=== PATIENT | female | born 1995 | race Hispanic/Latino ===

== ENCOUNTER 2016-10-27 13:27 | Emergency (ER) | payer MEDICAID ==
[2016-10-27 13:38] VITALS: BMI 30.1
[2016-10-27 13:42] VITALS: BP 99/71; PULSE 84; RESP 17; TEMP 98.4; O2SAT 100
--- NOTE | 2016-10-27 13:52 | ED PDOC ---
HPI: Abdomen Time Seen by Provider: 10/27/16 13:37 Chief Complaint (Nursing): Abdominal Pain Chief Complaint (Provider): Pelvic Pain History Per: Patient History/Exam Limitations: no limitations Onset/Duration Of Symptoms: Hrs Outside of [place] travel?: No Current Symptoms Are (Timing): Still Present Quality Of Discomfort: "Pain" Associated Symptoms: denies: Fever, Chills, Nausea, Vomiting, Urinary Symptoms Additional Complaint(s): Marianna Stroud, a 21 year old female, presents to the ED complaining of abdominal pain. The patient states that last night she felt pain in her sides but ignored it until this morning. 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 The patient reports that she felt similar pains a few years ago when she had a cyst that burst. Denies fevers, chills, nausea, vomiting, vaginal bleeding/discharge, urinary symptoms. Abnormal Vaginal Bleeding: No Past Medical History Reviewed: Historical Data, Nursing Documentation, Vital Signs Vital Signs: Last Vital Signs Temp 98.4 F 10/27/16 13:40 Pulse 84 10/27/16 13:40 Resp 17 10/27/16 13:40 BP 99/71 L 10/27/16 13:40 Pulse Ox 100 10/27/16 17:23 - Medical History PMH: No Chronic Diseases - Family History Family History: States: Unknown Family Hx - Immunization History Hx Tetanus Toxoid Vaccination: Yes Hx Influenza Vaccination: No Hx Pneumococcal Vaccination: No - Home Medications Home Medications: Ambulatory Orders Medication Instructions Recorded Nitrofurantoin Macrocrystals 100 mg PO BID #14 cap 10/27/16 [Macrobid] - Allergies Allergies/Adverse Reactions: Allergies Allergy/AdvReac Type Severity Reaction Status Date / Time latex Allergy RASH Verified 10/27/16 14:15 Review of Systems Constitutional: Negative for: Fever, Chills Gastrointestinal: Positive for: Abdominal Pain. Negative for: Nausea, Vomiting Genitourinary Female: Negative for: Dysuria, Frequency, Incontinence, Hematuria , Vaginal Discharge, Vaginal Bleeding Physical Exam - Reviewed Nursing Documentation Reviewed: Yes Vital Signs Reviewed: Yes - Physical Exam Appears: Positive for: Non-toxic, No Acute Distress Head Exam: Positive for: ATRAUMATIC, NORMOCEPHALIC Skin: Positive for: Normal Color, Warm, Dry Eye Exam: Positive for: Normal appearance, EOMI, PERRL ENT: Positive for: Normal ENT Inspection Neck: Positive for: Normal, Painless ROM, Supple Cardiovascular/Chest: Positive for: Regular Rate, Rhythm. Negative for: Chest Non Tender, Tachycardia Respiratory: Positive for: Normal Breath Sounds. Negative for: Wheezing, Respiratory Distress Gastrointestinal/Abdominal: Positive for: Normal Exam (Right sided pelvic pain) , Bowel Sounds, Soft. Negative for: Tenderness, Guarding, Rebound Pelvic Exam: Positive for: Discharge (White discharge adhered to vaginal alejo.) , Tender Adnexa (Left adnexal tenderness.), Other (No drainage from cervix; [employer] - RN Rosalia). Negative for: No Cerv. Motion Tender Back: Positive for: Normal Inspection. Negative for: L CVA Tenderness, R CVA Tenderness Extremity: Positive for: Normal ROM. Negative for: Tenderness, Deformity, Swelling Neurologic/Psych: Positive for: Alert, Oriented, Gait - ECG O2 Sat by Pulse Oximetry: 100 (RA) Pulse Ox Interpretation: Normal Medical Decision Making Medical Decision Makin:37 Initial Impression: 21 year old female presenting with right sided pelvic pain Initial Plan: * Upreg * Urinalysis * Diflucan 150mg PO * US Pelvis/Transvaginal 5:23 Patient is medically stable and will be discharged home with antibiotics to treat UTI. Patient was instructed to return to ED if pain persists or gets worse. Dx: UTI Condition: Stable Scribe Attestation Documented by Aishwarya Loredo acting as a scribe for Nora Manzano PA-C. Scribe Attestation All medical record entries made by the Scribe were at my direction and personally dictated by me. I have reviewed the chart and agree that the record accurately reflects my personal performance of the history, physical exam, medical decision making, and the department course for this patient. I have also personally directed, reviewed, and agree with the discharge instructions and disposition. Disposition - Clinical Impression Clinical Impression: UTI (urinary tract infection) - Patient ED Disposition Is Patient to be Admitted: No Counseled Patient/Family Regarding: Studies Performed, Diagnosis, Rx Given - Disposition Disposition: Routine/Home Disposition Time: 13:35 Prescriptions: Nitrofurantoin Macrocrystals [Macrobid] 100 mg PO BID #14 cap Instructions: Urinary Tract Infection in Women (ED)
[2016-10-27 14:26] LABS: RBC URINE 3 /hpf (0-3); URINE BACTERIA FEW (<OCC); URINE BILIRUBIN NEGATIVE (NEGATIVE); URINE BLOOD NEGATIVE (NEGATIVE); URINE COLOR YELLOW (YELLOW); URINE GLUCOSE (UA) NEG (Normal); URINE KETONE NEGATIVE (NEGATIVE); URINE LEUKOCYTE ESTERASE NEG Leu/uL (Negative); URINE PROTEIN NEGATIVE (NEGATIVE); URINE UROBILINOGEN 0.2-1.0 mg/dL (0.2-1.0); WBC URINE 1 /hpf (0-5)
[2016-10-27] MEDS ORDERED: Fluconazole 150 MG TAB PO ONE (14:35)
--- NOTE | 2016-10-27 17:20 | US ---
Pelvic ultrasound dated 10/27/2016 History: Left-sided pelvic pain. Transabdominal-transvaginal sonographic evaluation of the pelvis performed. Findings: The uterus is anteverted measuring approximately 7.3 x 3.4 x 4.9 cm. The endometrial stripe measures 1.1 cm. No myometrial masses seen. There is fluid present in the cul de sac. Right ovary measures approximately 2.5 x 1.6 x 1.6 cm. Left ovary measures approximately 3.2 x 1.7 x 2 x 3.2 cm. Both ovaries contain follicular cysts and exhibit arterial flow. Impression: There is free fluid present within the cul de sac of. No adnexal masses or collections seen.
== END 2016-10-27 17:24 | disposition home or self-care (01) ==
LOC: H.ER 13:27
DX: N39.0 Urinary tract infection, site not specified (principal)

== ENCOUNTER 2016-12-23 21:35 | Emergency (ER) | payer SELFPAY ==
[2016-12-23 21:35] VITALS: BMI 30.1
[2016-12-23 22:12] VITALS: BP 106/56; PULSE 75; RESP 20; TEMP 99.1; O2SAT 100
--- NOTE | 2016-12-23 22:16 | ED PDOC ---
Lower Extremity Pain/Injury Time Seen by Provider: 12/23/16 22:16 Chief Complaint (Nursing): Lower Extremity Problem/Injury Chief Complaint (Provider): left foot pain History Per: Patient Additional Complaint(s): 21-year-old female presents with 4 day history of atraumatic pain to left foot and ankle. Patient has been taking Tylenol but this has not helped. She states she is limping when she walks. No fever or chills. Patient rates current pain as an 8 out of 10 and denies any associated numbness or tingling. Pain does not radiate. Past Medical History Reviewed: Historical Data, Nursing Documentation, Vital Signs Vital Signs: Last Vital Signs Temp 99.1 F 12/23/16 22:10 Pulse 75 12/23/16 22:10 Resp 20 12/23/16 22:10 BP 106/56 L 12/23/16 22:10 Pulse Ox 100 12/23/16 22:10 - Medical History PMH: No Chronic Diseases - Surgical History Other surgeries: Left hand fracture repair - Family History Family History: States: No Known Family Hx - Living Arrangements Living Arrangements: With Family - Social History Current smoker - smoking cessation education provided: No Alcohol: None Drugs: Denies - Home Medications Home Medications: Ambulatory Orders Medication Instructions Recorded Nitrofurantoin Macrocrystals 100 mg PO BID #14 cap 10/27/16 [Macrobid] Ibuprofen [Motrin Tab] 800 mg PO Q8 PRN #20 tab 12/23/16 - Allergies Allergies/Adverse Reactions: Allergies Allergy/AdvReac Type Severity Reaction Status Date / Time latex Allergy RASH Verified 10/27/16 14:15 Wells Criteria for PE - Wells Criteria for Pulmonary Embolism Clinical Signs and Symptoms of DVT: No P.E is #1 Diagnosis, or Equally Likely: No Heart Rate >100: No Immobilization at least 3 days;Surgery previous 4 weeks: No Previous, objectively diagnosed PE or DVT: No Hemoptysis: No Malignancy w/treatment within 6 months, or palliative: No Total Score: 0 Review of Systems ROS Statement: Except As Marked, All Systems Reviewed And Found Negative Constitutional: Negative for: Fever Musculoskeletal: Positive for: Foot Pain (left foot and ankle pain for 4 days, denies trauma) Physical Exam - Reviewed Nursing Documentation Reviewed: Yes Vital Signs Reviewed: Yes - Physical Exam Appears: Positive for: Well, Non-toxic, No Acute Distress Skin: Negative for: Rash Eye Exam: Positive for: Normal appearance Extremity: Positive for: Other (Tenderness diffusely to left ankle and foot region with no soft tissue swelling or ecchymosis, normal distal sensation, swelling or tenderness) Neurologic/Psych: Positive for: Alert, Oriented - Laboratory Results Urine POC: Negative - ECG O2 Sat by Pulse Oximetry: 100 Pulse Ox Interpretation: Normal - Other Rad Left foot and ankle x-ray X-Ray: Interpreted by Me, Viewed By Me X-Ray Interpretation: no fx, no dis Medical Decision Making Medical Decision Makin-year-old female with left foot and ankle pain. Plan: X-ray left foot and ankle PO motrin for pain Crutches given. See procedure note. Rx motrin. Podiatry referral. Procedures - Splinting Location: left foot Pre-Made Type: jennifer wrap, ortho shoe Pre-Proc Neuro Vasc Exam: normal Post-Proc Neuro Vasc Exam: normal Disposition - Clinical Impression Clinical Impression: Foot sprain - Patient ED Disposition Is Patient to be Admitted: No Counseled Patient/Family Regarding: Studies Performed, Diagnosis, Need For Followup, Rx Given - Disposition Referrals: Podiatry Clinic [Outside] Disposition: Routine/Home Disposition Time: 23:18 Condition: STABLE Additional Instructions: Ice, rest and elevate affected area. Take prescription medicines directed as needed for pain. Follow-up with podiatry clinic for any persistent symptoms. Prescriptions: Ibuprofen [Motrin Tab] 800 mg PO Q8 PRN #20 tab PRN Reason: Pain, Moderate (4-7) Instructions: Foot Sprain (ED), Crutch Instructions (ED) Forms: [employer] ([place]), [facility] ED School/Work Excuse
--- NOTE | 2016-12-24 09:59 | RAD ---
PROCEDURE: Left Ankle Radiographs. HISTORY: pain COMPARISON: None FINDINGS: BONES: Bone alignment and mineralization are normal. There is no acute displaced fracture or bone destruction. JOINTS: Normal. No osteoarthritis. Ankle mortise maintained. Talar dome intact SOFT TISSUES: Normal. OTHER FINDINGS: None. IMPRESSION: Normal examination.
--- NOTE | 2016-12-24 10:00 | RAD ---
PROCEDURE: Left Foot Radiographs. HISTORY: Pain COMPARISON: None. FINDINGS: BONES: Bone alignment and mineralization are normal. There is no acute fracture or bone destruction. JOINTS: Normal. SOFT TISSUES: Normal. OTHER FINDINGS: None. IMPRESSION: No acute fracture or dislocation.
== END 2016-12-23 23:30 | disposition home or self-care (01) ==
LOC: H.ER 21:35
DX: S93.602A Unspecified sprain of left foot, initial encounter (principal); X50.9XXA Other and unspecified overexertion or strenuous movements or postures, initial encounter; Y92.89 Other specified places as the place of occurrence of the external cause

== ENCOUNTER 2017-01-18 14:46 | Emergency (ER) | payer SELFPAY ==
[2017-01-18 14:47] VITALS: BMI 30.1
[2017-01-18 15:05] VITALS: TEMP 97.8
[2017-01-18] MEDS ORDERED: Sodium Chloride 0.9% 1,000 ML IV STA (16:10)
--- NOTE | 2017-01-18 16:16 | ED PDOC ---
HPI: Female Pain Time Seen by Provider: 01/18/17 15:18 Chief Complaint (Nursing): Female Genitourinary Chief Complaint (Provider): Pelvic pain History Per: Patient History/Exam Limitations: no limitations Onset/Duration Of Symptoms: Hrs (x 2) Current Symptoms Are (Timing): Still Present Additional Complaint(s): Marianna is a 21 y/o female who presents to the ED complaining of pelvic pain, onset 2 hours ago after a bowel movement. Pain is constant. Took Tylenol without relief. Patient also developed nausea and vomited once. No fever, diarrhea, constipation, urinary frequency, dysuria, hematuria, vaginal bleeding or discharge. Patient has had the same pain in the past but now it is more painful. PMD: Unknown Past Medical History Reviewed: Historical Data, Nursing Documentation, Vital Signs Vital Signs: Last Vital Signs Temp 97.8 F 01/18/17 15:02 Pulse 74 01/18/17 15:02 Resp 18 01/18/17 15:02 BP 103/59 L 01/18/17 15:02 Pulse Ox 98 01/18/17 15:02 - Medical History PMH: No Chronic Diseases - Surgical History Other surgeries: Finger surgery - Family History Family History: States: Unknown Family Hx - Social History Current smoker - smoking cessation education provided: Yes (heavy) Alcohol: None Drugs: Denies - Immunization History Hx Tetanus Toxoid Vaccination: Yes Hx Influenza Vaccination: No Hx Pneumococcal Vaccination: No - Home Medications Home Medications: Ambulatory Orders Medication Instructions Recorded Nitrofurantoin Macrocrystals 100 mg PO BID #14 cap 01/18/17 [Macrobid] Phenazopyridine [Pyridium] 200 mg PO TID PRN #6 tab 01/18/17 - Allergies Allergies/Adverse Reactions: Allergies Allergy/AdvReac Type Severity Reaction Status Date / Time latex Allergy RASH Verified 10/27/16 14:15 Review of Systems ROS Statement: Except As Marked, All Systems Reviewed And Found Negative Constitutional: Negative for: Fever, Chills Gastrointestinal: Positive for: Nausea, Vomiting. Negative for: Diarrhea, Constipation Genitourinary Female: Positive for: Pelvic Pain. Negative for: Dysuria, Frequency, Hematuria, Vaginal Discharge, Vaginal Bleeding Physical Exam - Reviewed Nursing Documentation Reviewed: Yes Vital Signs Reviewed: Yes - Physical Exam Appears: Positive for: Non-toxic, No Acute Distress Head Exam: Positive for: ATRAUMATIC, NORMAL INSPECTION, NORMOCEPHALIC Skin: Positive for: Normal Color, Warm, Dry Eye Exam: Positive for: EOMI, Normal appearance, PERRL ENT: Positive for: Normal ENT Inspection Neck: Positive for: Normal, Painless ROM, Supple Cardiovascular/Chest: Positive for: Regular Rate, Rhythm. Negative for: Murmur Respiratory: Positive for: Normal Breath Sounds. Negative for: Accessory Muscle Use, Respiratory Distress Gastrointestinal/Abdominal: Positive for: Soft, Tenderness (Suprapubic tenderness). Negative for: Guarding, Rebound Back: Positive for: Normal Inspection. Negative for: Vertebral Tenderness Extremity: Positive for: Normal ROM. Negative for: Pedal Edema, Deformity Neurologic/Psych: Positive for: Alert, Oriented. Negative for: Motor/Sensory Deficits - Laboratory Results Result Diagrams: 01/18/17 16:36 01/18/17 16:36 - ECG O2 Sat by Pulse Oximetry: 98 (RA) Pulse Ox Interpretation: Normal Medical Decision Making Medical Decision Making: Time: 16:10 Initial Plan: --CMP --CBC w/ differential --ED Urine --ED Urine dipstick --Urinalysis --Patient started on IV fluids, Toradol, and Zofran --Pending reevaluation Time: 16:55 -Pending US Pelvis/Transvag Scribe Attestation: Documented by Macarena Aiken, acting as a scribe for Ciera Tim MD Provider Scribe Attestation: All medical record entries made by the Scribe were at my direction and personally dictated by me. I have reviewed the chart and agree that the record accurately reflects my personal performance of the history, physical exam, medical decision making, and the department course for this patient. I have also personally directed, reviewed, and agree with the discharge instructions and disposition. Disposition - Clinical Impression Clinical Impression: UTI (urinary tract infection) - Disposition Referrals: [facility] [Outside] Disposition Time: 18:28 Condition: STABLE Prescriptions: Nitrofurantoin Macrocrystals [Macrobid] 100 mg PO BID #14 cap Phenazopyridine [Pyridium] 200 mg PO TID PRN #6 tab PRN Reason: Bladder Spasm Instructions: Urinary Tract Infection in Women (ED) Forms: [employer] ([place]rainian)
[2017-01-18 16:39] LABS: BASO % 0.3 % (0.0-2.0); EOS # 0.1 K/uL (0.0-0.7); EOS % 0.5 % (0.0-4.0); HEMATOCRIT 42.2 % (34.0-47.0); LYMPH # 1.8 K/uL (1.0-4.3); MEAN CELL VOLUME 90.5 fl (81.0-99.0); MEAN CORPUSCULAR HEMOGLOBIN 29.7 pg (27.0-31.0); MEAN CORPUSCULAR HGB CONC 32.8 g/dL (33.0-37.0); MEAN PLATELET VOLUME 9.9 fl (7.2-11.7); MONO # 0.6 K/uL (0.0-0.8); MONO % 4.4 % (0.0-10.0); NEUT # 11.5 K/uL (1.8-7.0); NEUT % 81.8 % (50.0-75.0); RED CELL DISTRIBUTION WIDTH 12.9 % (11.5-14.5); WHITE BLOOD COUNT 14.1 K/uL (4.8-10.8)
[2017-01-18 16:47] LABS: ALB/GLOB RATIO 1.6 (1.0-2.1); ALKALINE PHOSPHATASE 74 U/L (38-126); ALT/SGPT 27 U/L (9-52); AST/SGOT 18 U/L (14-36); BILIRUBIN,TOTAL 0.6 mg/dl (0.2-1.3); BLOOD UREA NITROGEN 11 mg/dl (7-17); CALCIUM 9.5 mg/dL (8.4-10.2); CARBON DIOXIDE 24 mmol/L (22-30); CHLORIDE 103 mmol/L (98-107); GFR AFRICAN-AMERICAN > 60; GLUCOSE,RANDOM 88 mg/dL (65-105); POTASSIUM 4.1 MMOL/L (3.6-5.0); SODIUM 139 mmol/l (132-148); TOTAL PROTEIN 7.3 G/DL (6.3-8.2)
[2017-01-18 16:52] LABS: RBC URINE 4 /hpf (0-3); URINE BACTERIA RARE (<OCC); URINE BILIRUBIN NEGATIVE (NEGATIVE); URINE BLOOD NEGATIVE (NEGATIVE); URINE COLOR YELLOW (YELLOW); URINE GLUCOSE (UA) NEG (Normal); URINE KETONE NEGATIVE (NEGATIVE); URINE LEUKOCYTE ESTERASE SMALL Leu/uL (Negative); URINE PROTEIN 30 mg/dL (NEGATIVE); URINE UROBILINOGEN 0.2-1.0 mg/dL (0.2-1.0); WBC URINE 10 /hpf (0-5)
[2017-01-18 17:44] VITALS: BP 112/64; PULSE 75; RESP 14
--- NOTE | 2017-01-19 08:24 | US ---
PROCEDURE: HISTORY: Suprapubic pain COMPARISON: TECHNIQUE: FINDINGS: The uterus measures 6.9 x 4.8 x 3.8 centimeters. The endometrium measures 14 millimeters. The right ovary measures 4.4 x 4.2 cm and contains a simple cyst measuring 2.5 cm. Left ovary measures 2.7 x 2.0 centimeters. There is no free fluid the pelvis. IMPRESSION: 2.5 centimeter right ovarian cyst.
[2017-01-28 15:14] VITALS: O2SAT 98
== END 2017-01-18 18:45 | disposition home or self-care (01) ==
LOC: H.ER 14:46
DX: N39.0 Urinary tract infection, site not specified (principal)
CPT/HCPCS: 76830; 76856; 80053; 81003; 81025; 85025; 96374; 99282; J1885; J7040

== ENCOUNTER 2018-01-04 18:46 | Emergency (ER) | payer SELFPAY ==
[2018-01-04 18:46] VITALS: BMI 30.1
[2018-01-04] MEDS ORDERED: Sodium Chloride 0.9% 1,000 ML IV STA ×2 (19:31→21:50)
[2018-01-04 20:21] LABS: BASO # 0.1 K/uL (0.0-0.2); BASO % 0.5 % (0.0-2.0); EOS % 0.3 % (0.0-4.0); HEMOGLOBIN 13.5 g/dL (12.0-16.0); LYMPH # 1.7 K/uL (1.0-4.3); LYMPH % 11.8 % (20.0-40.0); MEAN CELL VOLUME 89.4 fl (81.0-99.0); MEAN CORPUSCULAR HEMOGLOBIN 30.2 pg (27.0-31.0); MEAN CORPUSCULAR HGB CONC 33.7 g/dL (33.0-37.0); MEAN PLATELET VOLUME 9.5 fl (7.2-11.7); MONO # 0.9 K/uL (0.0-0.8); MONO % 6.2 % (0.0-10.0); NEUT # 11.4 K/uL (1.8-7.0); NEUT % 81.2 % (50.0-75.0); RBC 4.47 Mil/uL (3.80-5.20); RED CELL DISTRIBUTION WIDTH 12.8 % (11.5-14.5)
[2018-01-04 20:26] LABS: VENOUS BLOOD GAS BASE EXCESS -0.5 mmol/L (0.0-2.0); VENOUS BLOOD GAS PCO2 39 mmHg (40-60); VENOUS BLOOD GAS PO2 20 mm/Hg (30-55)
[2018-01-04 20:31] LABS: ALB/GLOB RATIO 1.5 (1.0-2.1); ALBUMIN 4.6 g/dL (3.5-5.0); ALT/SGPT 36 U/L (9-52); AST/SGOT 20 U/L (14-36); BLOOD UREA NITROGEN 7 mg/dl (7-17); CALCIUM 9.5 mg/dL (8.4-10.2); GFR NON-AFRICAN AMERICAN > 60
--- NOTE | 2018-01-04 20:42 | ED PDOC ---
HPI: CCC, URI, Sore Throat Time Seen by Provider: 01/04/18 18:55 Chief Complaint (Nursing): ENT Problem Chief Complaint (Provider): Sore Throat History Per: Patient History/Exam Limitations: no limitations Have you had recent travel within the past 21 days to any of the following countries: [place], [place], [place] or [place]?: No Onset/Duration Of Symptoms: Days Current Symptoms Are (Timing): Still Present Location Of Pain: Throat Sick Contacts (Context): None Associated Symptoms: Fever. denies: Cough, Nasal Congestion Additional Complaint(s): 22 year old female presents to the ED for an evaluation of a sore throat onset yesterday with associated symptoms of fever. Patient states she took Tylenol without any relief and her last dosage was at 1230pm. She denies cough, congestion, recent travel or sick contacts. PMD: Unknown Past Medical History Reviewed: Historical Data, Nursing Documentation, Vital Signs Vital Signs: Last Vital Signs Temp 98.9 F 01/04/18 22:47 Pulse 95 H 01/04/18 22:47 Resp 18 01/04/18 22:47 BP 95/59 L 01/04/18 22:47 Pulse Ox 98 01/04/18 22:58 - Medical History PMH: No Chronic Diseases - Family History Family History: States: Unknown Family Hx - Immunization History Hx Tetanus Toxoid Vaccination: Yes Hx Influenza Vaccination: No Hx Pneumococcal Vaccination: No - Home Medications Home Medications: Ambulatory Orders Medication Instructions Recorded Nitrofurantoin Macrocrystals 100 mg PO BID #14 cap 01/18/17 [Macrobid] Phenazopyridine [Pyridium] 200 mg PO TID PRN #6 tab 01/18/17 Amoxicillin [Amoxil 500 mg Cap] 500 mg PO BID #20 cap 01/04/18 - Allergies Allergies/Adverse Reactions: Allergies Allergy/AdvReac Type Severity Reaction Status Date / Time latex Allergy RASH Verified 01/04/18 18:56 Review of Systems ROS Statement: Except As Marked, All Systems Reviewed And Found Negative Constitutional: Positive for: Fever ENT: Positive for: Throat Pain. Negative for: Nose Congestion Respiratory: Negative for: Cough Physical Exam - Reviewed Nursing Documentation Reviewed: Yes Vital Signs Reviewed: Yes - Physical Exam Appears: Positive for: Non-toxic, No Acute Distress Head Exam: Positive for: ATRAUMATIC, NORMAL INSPECTION, NORMOCEPHALIC Skin: Positive for: Normal Color, Warm, Dry Eye Exam: Positive for: Normal appearance ENT: Positive for: TM Is/Are (non erythematous and non bulging), Pharyngeal Erythema, Tonsillar Exudate, Tonsillar Swelling, Other (able to swallow saliva but no trismus) Cardiovascular/Chest: Positive for: Regular Rate, Rhythm. Negative for: Murmur Respiratory: Positive for: Normal Breath Sounds. Negative for: Decreased Breath Sounds, Wheezing, Respiratory Distress Gastrointestinal/Abdominal: Positive for: Soft. Negative for: Tenderness, Organomegaly Neurologic/Psych: Positive for: Alert, Oriented (x3). Negative for: Motor/ Sensory Deficits - Laboratory Results Result Diagrams: 01/04/18 20:00 01/04/18 20:00 - ECG O2 Sat by Pulse Oximetry: 98 (RA) Pulse Ox Interpretation: Normal Medical Decision Making Medical Decision Making: Time: 1930 Initial Plan: --VBG Shock Panel --CMP --ED Urine --CBC w/ Differential --Normal Saline 1000 mls/hr --Toradol 30mg --Tylenol 975mg --Blood Culture --Throat Culture --IV Insertion --Reevaluation 2150 Repeat temp: 100.5, BP: 92/55, HR: 106 Reports feeling much better. Amoxicillin 500mg, Motrin 800mg PO, IV NS bolus x 1 ordered. 2240 Repeat HR 94, Temp: 98.4, BP: 96/59. Offers no complaints. Pt. states she is hungry and now has an appetite. Feeling much improved. Tolerating PO in ED. Case d/w Dr. Dunlap who agrees with care and disposition. Scribe Attestation: Documented by Philip Sellers, acting as a scribe for Tommy Hall PA-C. Provider Scribe Attestation: All medical record entries made by the Scribe were at my direction and personally dictated by me. I have reviewed the chart and agree that the record accurately reflects my personal performance of the history, physical exam, medical decision making, and the department course for this patient. I have also personally directed, reviewed, and agree with the discharge instructions and disposition. Disposition - Clinical Impression Clinical Impression: Pharyngitis - Patient ED Disposition Is Patient to be Admitted: No - Disposition Referrals: [facility] [Outside] [facility] [Outside] Disposition: Routine/Home Disposition Time: 20:42 Condition: IMPROVED Additional Instructions: CONTINUE TAKING TYLENOL AND/OR MOTRIN AT HOME FOR PAIN AND FEVER CARLOS LEVY, thank you for letting us take care of you today. Your provider was Patricia Dunlap MD and you were treated for THROAT PAIN. The emergency medical care you received today was directed at your acute symptoms. If you were prescribed any medication, please fill it and take as directed. It may take several days for your symptoms to resolve. Return to the Emergency Department if your symptoms worsen, do not improve, or if you have any other problems. Please contact your doctor or call one of the physicians/clinics you have been referred to that are listed on the Patient Visit Information form that is included in your discharge packet. Bring any paperwork you were given at discharge with you along with any medications you are taking to your follow up visit. Our treatment cannot replace ongoing medical care by a primary care provider outside of the emergency department. Thank you for allowing the [facility] team to be part of your care today. If you had an X-Ray or CT scan: A Radiologist will review the ED reading if any change in treatment is needed we will contact you. If you had a blood, urine, or wound culture: It will take several days for the results, if any change in treatment is needed we will contact you. If you had an STI test: It will take 48 hours for the results. Please call after 1 week if you have not heard back. Prescriptions: Amoxicillin [Amoxil 500 mg Cap] 500 mg PO BID #20 cap Instructions: Sore Throat, Adult (DC) Forms: [employer] ([place])
[2018-01-04 22:47] VITALS: BP 95/59; PULSE 95; RESP 18; TEMP 98.9
[2018-01-04 22:51] VITALS: O2SAT 98
== END 2018-01-04 23:00 | disposition home or self-care (01) ==
LOC: H.ER 18:46
DX: R50.9 Fever, unspecified (principal); J02.9 Acute pharyngitis, unspecified
CPT/HCPCS: 80053; 81025; 82803; 85025; 87040; 87070; 96374; 99283; J1885; J7030

== ENCOUNTER 2018-05-14 20:27 | Emergency (ER) | payer SELFPAY ==
[2018-05-14 20:27] VITALS: BMI 30.1
[2018-05-14 21:04] VITALS: BP 99/62; PULSE 80; RESP 18; TEMP 98.3; O2SAT 97
--- NOTE | 2018-05-14 22:07 | ED PDOC ---
HPI: Female Pain Time Seen by Provider: 05/14/18 21:06 Chief Complaint (Nursing): Female Genitourinary Chief Complaint (Provider): Female Genitourinary History Per: Patient History/Exam Limitations: no limitations Onset/Duration Of Symptoms: Days (x1 day) Additional Complaint(s): Marianna Stroud is a 22 year old female with a past medical history of pyelonephritis, who presents to the emergency department complaining of dysuria, frequency, and left flank pain, associated with nausea, onset yesterday. She states her symptoms are similar to her previous pyelonephritis. Patient denies fever, chills and vomiting. PMD: No provider Past Medical History Reviewed: Historical Data, Nursing Documentation, Vital Signs Vital Signs: Last Vital Signs Temp 98.3 F 05/14/18 21:03 Pulse 80 05/14/18 21:03 Resp 18 05/14/18 21:03 BP 99/62 L 05/14/18 21:03 Pulse Ox 97 05/14/18 21:03 - Medical History Other PMH: pyelonephritis - Surgical History Surgical History: No Surg Hx - Family History Family History: States: Unknown Family Hx - Social History Current smoker - smoking cessation education provided: No Ex-Smoker (has not smoked in the last 12 months): No Alcohol: None Drugs: Denies - Immunization History Hx Tetanus Toxoid Vaccination: Yes Hx Influenza Vaccination: No Hx Pneumococcal Vaccination: No - Home Medications Home Medications: Ambulatory Orders Medication Instructions Recorded Nitrofurantoin Macrocrystals 100 mg PO BID #14 cap 01/18/17 [Macrobid] Phenazopyridine [Pyridium] 200 mg PO TID PRN #6 tab 01/18/17 Amoxicillin [Amoxil 500 mg Cap] 500 mg PO BID #20 cap 01/04/18 Ciprofloxacin [Cipro] 500 mg PO Q12 #14 tab 05/14/18 Phenazopyridine HCl [Pyridium] 100 mg PO TID #6 tab 05/14/18 - Allergies Allergies/Adverse Reactions: Allergies Allergy/AdvReac Type Severity Reaction Status Date / Time latex Allergy RASH Verified 05/14/18 22:45 Review of Systems ROS Statement: Except As Marked, All Systems Reviewed And Found Negative Constitutional: Negative for: Fever, Chills Gastrointestinal: Positive for: Nausea. Negative for: Vomiting Genitourinary Female: Positive for: Dysuria, Frequency Musculoskeletal: Positive for: Back Pain (left flank pain) Physical Exam - Reviewed Nursing Documentation Reviewed: Yes Vital Signs Reviewed: Yes - Physical Exam Appears: Positive for: Non-toxic, No Acute Distress Head Exam: Positive for: ATRAUMATIC, NORMOCEPHALIC Skin: Positive for: Normal Color, Warm, Dry Eye Exam: Positive for: Normal appearance, EOMI, PERRL ENT: Positive for: Normal ENT Inspection Neck: Positive for: Normal, Painless ROM, Supple Cardiovascular/Chest: Positive for: Regular Rate, Rhythm. Negative for: Murmur Respiratory: Positive for: Normal Breath Sounds. Negative for: Respiratory Distress Gastrointestinal/Abdominal: Positive for: Normal Exam, Soft. Negative for: Tenderness Back: Positive for: L CVA Tenderness. Negative for: R CVA Tenderness, Vertebral Tenderness Extremity: Positive for: Normal ROM. Negative for: Pedal Edema, Deformity Neurologic/Psych: Positive for: Alert, Oriented. Negative for: Motor/Sensory Deficits - Laboratory Results Result Diagrams: 05/14/18 22:08 05/14/18 22:08 - ECG O2 Sat by Pulse Oximetry: 97 (RA) Pulse Ox Interpretation: Normal Medical Decision Making Medical Decision Making: Time: 2121 Impression: urinary symptoms and flank pain Plan: --CMP --ED urine --ED urine dipstick --CBC with differential --Blood culture --Urine culture --Urinalysis --Heplock Insertion Patient decline pain medication. Time: 2309 --Labs reviewed: no significant clinical abnormality with exception of UA which indicates (+) UTI. IV Recephin additionally ordered. Upon provider reevaluation, patient states she feels well enough to take medication at home. Patient is medically stable and requires no further treatment in the ED at this time. Counseling was provided and all questions were answered regarding diagnosis. There is agreement to discharge plan. Return if symptoms persist or worsen. Clinical Impression: UTI Scribe Attestation: Documented by Servando Fournier and Amy Herrera, acting as scribes for Hermelindo Forrester MD. Provider Scribe Attestation: All medical record entries made by the Scribe were at my direction and personally dictated by me. I have reviewed the chart and agree that the record accurately reflects my personal performance of the history, physical exam, medical decision making, and the department course for this patient. I have also personally directed, reviewed, and agree with the discharge instructions and disposition. Disposition - Clinical Impression Clinical Impression: UTI (urinary tract infection) - Patient ED Disposition Is Patient to be Admitted: No Counseled Patient/Family Regarding: Studies Performed, Diagnosis, Rx Given - Disposition Disposition: Routine/Home Disposition Time: 23:10 Condition: STABLE Prescriptions: Ciprofloxacin [Cipro] 500 mg PO Q12 #14 tab Phenazopyridine HCl [Pyridium] 100 mg PO TID #6 tab Instructions: Urinary Tract Infections in Adults Forms: [facility] (Vietnamese)
[2018-05-14 22:13] LABS: BASO # 0.1 K/uL (0.0-0.2); BASO % 0.4 % (0.0-2.0); EOS # 0.3 K/uL (0.0-0.7); EOS % 2.2 % (0.0-4.0); HEMOGLOBIN 13.7 g/dL (12.0-16.0); LYMPH # 2.5 K/uL (1.0-4.3); LYMPH % 20.2 % (20.0-40.0); MEAN CELL VOLUME 91.5 fl (81.0-99.0); MEAN CORPUSCULAR HEMOGLOBIN 29.9 pg (27.0-31.0); MEAN CORPUSCULAR HGB CONC 32.7 g/dL (33.0-37.0); MEAN PLATELET VOLUME 10.2 fl (7.2-11.7); MONO # 0.6 K/uL (0.0-0.8); MONO % 4.6 % (0.0-10.0); NEUT % 72.6 % (50.0-75.0); RBC 4.59 Mil/uL (3.80-5.20); RED CELL DISTRIBUTION WIDTH 13.6 % (11.5-14.5); WHITE BLOOD COUNT 12.4 K/uL (4.8-10.8)
[2018-05-14 22:25] LABS: SQUAMOUS EPITHIAL 11 /hpf (0-5); URINE BACTERIA OCC (<OCC); URINE BILIRUBIN NEGATIVE (NEGATIVE); URINE BLOOD MODERATE (NEGATIVE); URINE CLARITY CLOUDY (Clear); URINE COLOR YELLOW (YELLOW); URINE GLUCOSE (UA) NEG (NEGATIVE); URINE LEUKOCYTE ESTERASE LARGE Leu/uL (Negative); URINE PROTEIN 100 mg/dL (NEGATIVE); URINE UROBILINOGEN 0.2-1.0 mg/dL (0.2-1.0)
[2018-05-14 22:27] LABS: ALB/GLOB RATIO 1.4 (1.0-2.1); ALBUMIN 4.5 g/dL (3.5-5.0); ALT/SGPT 22 U/L (9-52); AST/SGOT 18 U/L (14-36); BLOOD UREA NITROGEN 11 mg/dl (7-17); CALCIUM 9.4 mg/dL (8.4-10.2); GFR NON-AFRICAN AMERICAN > 60
[2018-05-14] MEDS ORDERED: cefTRIAXone (Rocephin) 1 gm Inj ONE (22:46)
== END 2018-05-14 23:57 | disposition home or self-care (01) ==
LOC: H.ER 20:27
DX: N39.0 Urinary tract infection, site not specified (principal)
CPT/HCPCS: 80053; 81003; 81025; 85025; 87040; 87086; 87181; 96365; 99283; J0696

== ENCOUNTER 2018-06-03 16:45 | Emergency (ER) | payer MEDICAID ==
[2018-06-03 16:45] VITALS: BMI 30.1
[2018-06-03 16:54] VITALS: RESP 18
[2018-06-03] MEDS ORDERED: cefTRIAXone (Rocephin) 1 gm Inj ONE (17:48)
[2018-06-03 18:00] LABS: BASO % 0.4 % (0.0-2.0); EOS # 0.1 K/uL (0.0-0.7); EOS % 0.8 % (0.0-4.0); LYMPH # 1.2 K/uL (1.0-4.3); LYMPH % 10.8 % (20.0-40.0); MEAN CELL VOLUME 91.2 fl (81.0-99.0); MEAN CORPUSCULAR HEMOGLOBIN 30.2 pg (27.0-31.0); MEAN CORPUSCULAR HGB CONC 33.1 g/dL (33.0-37.0); MEAN PLATELET VOLUME 9.3 fl (7.2-11.7); MONO # 0.5 K/uL (0.0-0.8); MONO % 4.8 % (0.0-10.0); NEUT # 9.4 K/uL (1.8-7.0); NEUT % 83.2 % (50.0-75.0); RBC 4.63 Mil/uL (3.80-5.20); WHITE BLOOD COUNT 11.3 K/uL (4.8-10.8)
--- NOTE | 2018-06-03 18:03 | ED PDOC ---
HPI: Abdomen Time Seen by Provider: 06/03/18 17:20 Chief Complaint (Nursing): Abdominal Pain Chief Complaint (Provider): right flank pain History Per: Patient History/Exam Limitations: no limitations Onset/Duration Of Symptoms: Days (x2) Current Symptoms Are (Timing): Still Present Associated Symptoms: Chills, Urinary Symptoms (dysuria). denies: Nausea, Vomiting Additional Complaint(s): Marianna Stroud is a 22 year old female, with no significant past medical history, who presents to the emergency department complaining of a constant righ t flank pain associated with dysuria onset for x2 days. Patient reports a Tmax of 99.9 at home but has chills. She took Ibuprofen at 09:00 with mild relief of pain. Patient states she was seen here x3 weeks ago for the same symptoms, she was diagnosed with an UTI and was prescribed antibiotics but didn't fill them out because she couldn't afford them. Patient states symptoms went away on their own at the time. She denies any nausea, vomit, abdominal pain or other medical complaints. PMD: None provided. Past Medical History Reviewed: Historical Data, Nursing Documentation, Vital Signs Vital Signs: Last Vital Signs Temp 98.7 F 06/03/18 16:51 Pulse 120 H 06/03/18 16:51 Resp 18 06/03/18 16:51 BP 107/74 06/03/18 16:51 Pulse Ox 98 06/03/18 16:51 - Medical History PMH: No Chronic Diseases - Surgical History Other surgeries: pins in fingers - Family History Family History: States: Unknown Family Hx - Social History Current smoker - smoking cessation education provided: Yes (Heavy smoker >10 cigarettes daily) Alcohol: None Drugs: Denies - Immunization History Hx Tetanus Toxoid Vaccination: Yes Hx Influenza Vaccination: No Hx Pneumococcal Vaccination: No - Home Medications Home Medications: Ambulatory Orders Medication Instructions Recorded Nitrofurantoin Macrocrystals 100 mg PO BID #14 cap 01/18/17 [Macrobid] Phenazopyridine [Pyridium] 200 mg PO TID PRN #6 tab 01/18/17 Amoxicillin [Amoxil 500 mg Cap] 500 mg PO BID #20 cap 01/04/18 Ciprofloxacin [Cipro] 500 mg PO Q12 #14 tab 05/14/18 Phenazopyridine HCl [Pyridium] 100 mg PO TID #6 tab 05/14/18 Sulfamethoxazole/Trimethoprim 1 tab PO BID #20 tab 06/03/18 [Bactrim DS 800 mg-160 mg] - Allergies Allergies/Adverse Reactions: Allergies Allergy/AdvReac Type Severity Reaction Status Date / Time latex Allergy RASH Verified 06/03/18 16:50 Review of Systems ROS Statement: Except As Marked, All Systems Reviewed And Found Negative Constitutional: Positive for: Chills. Negative for: Fever Gastrointestinal: Negative for: Nausea, Vomiting, Abdominal Pain Genitourinary Female: Positive for: Dysuria Musculoskeletal: Positive for: Other (right flank pain) Physical Exam - Reviewed Nursing Documentation Reviewed: Yes Vital Signs Reviewed: Yes - Physical Exam Appears: Positive for: No Acute Distress Head Exam: Positive for: ATRAUMATIC, NORMAL INSPECTION, NORMOCEPHALIC Skin: Positive for: Normal Color, Warm, Dry Eye Exam: Positive for: Normal appearance, EOMI, PERRL Neck: Positive for: Normal, Painless ROM, Supple Cardiovascular/Chest: Positive for: Tachycardia (with regular rhythm). Negative for: Murmur Respiratory: Positive for: Normal Breath Sounds. Negative for: Respiratory Distress Gastrointestinal/Abdominal: Positive for: Normal Exam, Soft. Negative for: Tenderness, Guarding, Rebound Back: Positive for: R CVA Tenderness. Negative for: L CVA Tenderness, Vertebral Tenderness Extremity: Positive for: Normal ROM (upper and lower extremities). Negative for: Tenderness, Deformity, Swelling Neurologic/Psych: Positive for: Alert, Oriented. Negative for: Motor/Sensory Deficits - Laboratory Results Result Diagrams: 06/03/18 17:56 06/03/18 17:56 - ECG O2 Sat by Pulse Oximetry: 98 (RA) Pulse Ox Interpretation: Normal - Progress Re-evaluation Time: 20:17 Condition: Re-examined, Improved Medical Decision Making Medical Decision Making: Time: 17:20 Initial Impression: Flank pain and dysuria. Differential includes UTI and pyelonephritis. Initial Plan: --BMP --Urine dipstick --CBC w/ differential --Rocephin 1gm NaCl 0.9% 100 ml IVPB --Toradol 30 mg IVP --Blood culture --Urine culture --Urinalysis --Reevaluation 17:30 Urine dip shows blood and leuks. Scribe Attestation: Documented by Aidan Golden, acting as a scribe for Yaneth Javier MD Provider Scribe Attestation: All medical record entries made by the Scribe were at my direction and personally dictated by me. I have reviewed the chart and agree that the record accurately reflects my personal performance of the history, physical exam, medical decision making, and the department course for this patient. I have also personally directed, reviewed, and agree with the discharge instructions and disposition. Disposition - Clinical Impression Clinical Impression: Flank pain, Pyelonephritis - Patient ED Disposition Is Patient to be Admitted: No Doctor Will See Patient In The: Office Counseled Patient/Family Regarding: Studies Performed, Diagnosis, Need For Followup - Disposition Referrals: [facility] [Outside] Disposition: Routine/Home Disposition Time: 20:18 Condition: GOOD Additional Instructions: MARIANNA STROUD, thank you for letting us take care of you today. Your provider was Yaneth Javier MD and you were treated for RT SIDE PAIN. The emergency medical care you received today was directed at your acute symptoms. If you were prescribed any medication, please fill it and take as directed. It may take several days for your symptoms to resolve. Return to the Emergency Department if your symptoms worsen, do not improve, or if you have any other problems. Please contact your doctor or call one of the physicians/clinics you have been referred to that are listed on the Patient Visit Information form that is included in your discharge packet. Bring any paperwork you were given at discharge with you along with any medications you are taking to your follow up visit. Our treatment cannot replace ongoing medical care by a primary care provider outside of the emergency department. Thank you for allowing the [facility] team to be part of your care today. If you had an X-Ray or CT scan: A Radiologist will review the ED reading if any change in treatment is needed we will contact you. If you had a blood, urine, or wound culture: It will take several days for the results, if any change in treatment is needed we will contact you. If you had an STI test: It will take 48 hours for the results. Please call after 1 week if you have not heard back. Prescriptions: Sulfamethoxazole/Trimethoprim [Bactrim DS 800 mg-160 mg] 1 tab PO BID #20 tab Instructions: Urinary Tract Infections in Adults Forms: [facility] (Portuguese)
[2018-06-03 18:08] LABS: SQUAMOUS EPITHIAL 6 /hpf (0-5); URINE BACTERIA RARE (<OCC); URINE BILIRUBIN NEGATIVE (NEGATIVE); URINE BLOOD MODERATE (NEGATIVE); URINE CLARITY CLOUDY (Clear); URINE COLOR YELLOW (YELLOW); URINE GLUCOSE (UA) NEG (NEGATIVE); URINE LEUKOCYTE ESTERASE LARGE Leu/uL (Negative); URINE PROTEIN 100 mg/dL (NEGATIVE); URINE UROBILINOGEN 0.2-1.0 mg/dL (0.2-1.0)
[2018-06-03 18:14] LABS: BLOOD UREA NITROGEN 12 mg/dl (7-17); CALCIUM 9.5 mg/dL (8.4-10.2); GFR NON-AFRICAN AMERICAN > 60
[2018-06-03 20:23] VITALS: BP 112/60; PULSE 133; TEMP 103.6; O2SAT 100
== END 2018-06-03 20:42 | disposition home or self-care (01) ==
LOC: H.ER 16:45
DX: N12 Tubulo-interstitial nephritis, not specified as acute or chronic (principal); R10.9 Unspecified abdominal pain
CPT/HCPCS: 80048; 81003; 81025; 85025; 87040; 87086; 87181; 96374; 99284; J0696; J1885